=== PATIENT | female | born 1935 | race Caucasian/White ===

== ENCOUNTER 2018-10-11 13:50 | Outpatient (CLI) | payer OTHER | END 2018-10-11 21:03 | disposition home or self-care (01) | LOC: SMA 13:50 | PROVIDERS: ATTEND Family Medicine | DX: Z12.31 Encounter for screening mammogram for malignant neoplasm of breast (principal); I70.0 Atherosclerosis of aorta; I11.9 Hypertensive heart disease without heart failure | CPT/HCPCS: 71046-TC; 77067 ==

== ENCOUNTER 2019-10-16 09:56 | Outpatient (CLI) | payer OTHER | END 2019-10-16 20:18 | disposition home or self-care (01) | LOC: SMA 09:56 | PROVIDERS: ATTEND Family Medicine | DX: Z12.31 Encounter for screening mammogram for malignant neoplasm of breast (principal); N64.89 Other specified disorders of breast | CPT/HCPCS: 77067 ==

== ENCOUNTER 2020-10-16 10:08 | Outpatient (CLI) | payer OTHER | END 2020-10-16 21:26 | disposition home or self-care (01) | LOC: SMA 10:08 | PROVIDERS: ATTEND Family Medicine | DX: Z12.31 Encounter for screening mammogram for malignant neoplasm of breast (principal); R59.0 Localized enlarged lymph nodes | CPT/HCPCS: 77067 ==